=== PATIENT | male | born 1955 | race Caucasian/White ===

== ENCOUNTER → 2019-09-07 09:09 | Outpatient (BNVA) | payer OTHER, SELFPAY | PROVIDERS: Family Provider Family Medicine; PCP Family Medicine; Visit Provider Nurse Practitioner | DX: F43.12 Post-traumatic stress disorder, chronic (principal); G31.84 Mild cognitive impairment of uncertain or unknown etiology | CPT/HCPCS: 99214 ==

== ENCOUNTER → 2019-10-05 09:47 | Outpatient (BNVA) | payer OTHER, SELFPAY | PROVIDERS: Family Provider Family Medicine; PCP Family Medicine; Visit Provider Nurse Practitioner | DX: G31.84 Mild cognitive impairment of uncertain or unknown etiology (principal); F43.12 Post-traumatic stress disorder, chronic | CPT/HCPCS: 99213 ==

== ENCOUNTER 2019-12-24 06:58 | Day surgery (SDC) | payer MEDICARE, OTHER, SELFPAY ==
[2019-12-23 12:43] VITALS: BMI 25.1
[2019-12-24 07:09] VITALS: BP 116/83; PULSE 67; RESP 18; TEMP 36.3; O2SAT 99
[2019-12-24] MEDS: sodium chloride 0.9% 1,000 ML 30 ML IV (07:20)
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
[2019-12-24 09:08] VITALS: BP 111/72; PULSE 60; RESP 18; TEMP 36.1; O2SAT 96
--- NOTE | 2019-12-24 09:14 | ANE.PACU2 ---
 Inpatient post-anesthesia follow up: Airway intact: Yes Vital signs: Temperature 97.3 F Pulse Rate 67 Respiratory Rate 18 Blood Pressure 116/83 Pulse Oximetry 99 Oxygen Delivery Me thod Room Air Oxygen Flow Rate Fraction of Inspir ed Oxygen Hydration adequate: Yes Nausea and vomiting: No Pain level: 1 Mental status: Baseline
[2019-12-24 09:20] VITALS: BP 106/77; PULSE 61; RESP 18; O2SAT 98
== END 2019-12-24 09:38 | disposition home or self-care (01) ==
PROVIDERS: PCP Family Medicine; Visit Provider Internal Medicine
PROC: 0DJD8ZZ Inspection of Lower Intestinal Tract, Via Natural or Artificial Opening Endoscopic (ICD-10-PCS; CPT 45378; principal; 2019-12-24 08:30)
DX: Z12.11 Encounter for screening for malignant neoplasm of colon (principal); K63.89 Other specified diseases of intestine; I10 Essential (primary) hypertension
CPT/HCPCS: G0121; 12345; J2704; J7030

== ENCOUNTER → 2020-01-03 07:52 | Outpatient (BNVA) | payer MEDICARE, OTHER, SELFPAY | PROVIDERS: PCP Family Medicine; Visit Provider Nurse Practitioner | DX: F43.12 Post-traumatic stress disorder, chronic (principal); G31.84 Mild cognitive impairment of uncertain or unknown etiology | CPT/HCPCS: 99213 ==

== ENCOUNTER → 2020-02-03 11:31 | Outpatient (BNVA) | payer MEDICARE, OTHER, SELFPAY | PROVIDERS: PCP Family Medicine; Visit Provider Podiatrist Foot & Ankle Surgery | DX: M79.671 Pain in right foot (principal); M79.672 Pain in left foot | CPT/HCPCS: 73630 ==

== ENCOUNTER 2020-02-11 06:01 | Day surgery (SDC) | payer MEDICARE, OTHER, SELFPAY ==
[2020-02-10 10:03] VITALS: BMI 25.1
--- NOTE | 2020-02-11 | SCC_ITS ---
Procedure Done: Condylectomy left fourth toe CPT code 29469. Condylectomy right fourth toe CPT code 88493. Hammertoe correction left fifth toe CPT code 12573. Hammertoe correction right fifth toe CPT code 13765. 2 seconds of fluoroscopic guidance, for a cumulative dose of 0.037 mGy, was provided to Dr. Inman by the radiology department. C-arm images of the foot were saved for the patient's permanent record. GALILEA
[2020-02-11 06:18] VITALS: BP 112/68; PULSE 52; RESP 18; TEMP 36.4; O2SAT 98
--- NOTE | 2020-02-11 06:25 | W.PM.OPSUD ---
Surgery/Procedure H&P Update DATE OF PROCEDURE: February 11, 2020 DATE H&P PERFORMED: 02/03/20 H&P UPDATE INFORMATION: I have reviewed H&P completed within last 30 days, I have examined patient prior to procedure, No changes to prior documentation and H&P is in [facility] EMR on date indicated PREOP DIAGNOSIS: Right fifth hammertoe left and right foot. Heloma molle fourth toe left and right foot. PLANNED PROCEDURE: Operation Date: 02/11/20 07:00 Proposed Procedures p Condylectomy left and right foot fourth toe 19982 64545 M20.41 M20.42(Bilateral) - Ulysses Inman DPM s Hammertoe Correction left and right fifth toe(Bilateral) - Ulysses Inman DPM
[2020-02-11] MEDS: sodium chloride 0.9% 1,000 ML 30 ML IV (06:33)
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
--- NOTE | 2020-02-11 08:08 | P.OP_ITS ---
Operative Report Date of procedure: February 11, 2020 Pre-op Diagnosis: Right fifth hammertoe left and right foot. Heloma molle fourth toe left and right foot. Post-op diagnosis: same Post-op Findings: None Procedure Done: Condylectomy left fourth toe CPT code 07365. Condylectomy right fourth toe CPT code 58884. Hammertoe correction left fifth toe CPT code 88742. Hammertoe correction right fifth toe CPT code 11285. Implants: 4-0 Vicryl. 4-0 nylon. Specimens removed/disposition: None Pathology: none sent Surgeon: Ulysses Inman D.P.M. Forestry Support Specialist: Yolanda Anesthesia: MAC Estimated blood loss (mL): 2 Tourniquet time: See intraoperative documentation. IV fluids: None Urine output: None Complications: None Condition: stable Disposition: PACU Brief History: Patient is a pleasant 64-year-old male with a history of recalcitrant pain at left and right fourth toe and fifth toe with painful lesions at the fourth webspace. Conservative measures have failed to alleviate pain, he has utilized a variety of toe spacers, he has utilized salicylic acid pads, he has underwent cryotherapy and debridement, offloading with wide accommodative shoes. Patient states that he would like to discuss surgical options. States that conservative measures have not offered relief and is looking for long-term option. Recommended condylectomy the fourth toe left and right as well as hammertoe deformity of the fifth left and right risks include pain, bleeding, numbness, infection, damage to adjacent soft tissue structures, cock-up toe, flail toe, further progression of hammertoe, transfer lesions, failure to alleviate pain need for further surgical intervention. Patient is agreeable wishes to proceed. Procedure: Under mild sedation the patient was brought to the operating room and placed on the operating table in supine position. A timeout was performed. Anesthesia was then administered by the anesthesia service. Local anesthesia was injected by myself consisting of a total of 30 cc of 0.5% Marcaine plain and a left and right reverse Peralta block as well as a left and right foot fourth ray block. Well-padded pneumatic tourniquet was applied to the left and right ankle. The left and right lower extremities were then scrubbed, prepped and draped utilizing normal aseptic technique. The left and right foot was examined a weighted with an Esmarch bandage and a tourniquet was inflated at left and right ankle at 250 mmHg. Attention was directed to the fourth webspace of the left foot foot where a vertical incision was made from dorsal to plantar at the level of the proximal interphalangeal joint laterally at the fourth toe. Dissection was carried down through bone utilizing a combination of sharp and blunt technique. A osseous prominence consistent with a prominent lateral condyle at the head of the proximal phalanx of the fourth toe resected utilizing a bone rongeur and all rough edges smoothed with a hand rasp. Incision site was flushed with copious amounts of sterile saline solution. Incision was closed with 4-0 nylon. Attention was directed to the fourth webspace of the right foot foot where a vertical incision was made from dorsal to plantar at the level of the proximal interphalangeal joint laterally at the right fourth toe. Dissection was carried down through bone utilizing a combination of sharp and blunt technique. A osseous prominence consistent with a prominent lateral condyle at the head of the proximal phalanx of the fourth toe resected utilizing a bone rongeur and all rough edges smoothed with a hand rasp. Incision site was flushed with copious amounts of sterile saline solution. Incision was closed with 4-0 nylon. At this time attention was directed to the dorsum of the right fifth toe at the level of the metatarsal phalangeal joint where a linear longitudinal incision was made through skin with a #15 blade. Dissection was carried down bluntly to the level of the extensor tendon which was split longitudinally in a Z-plasty fashion for lengthening and reapproximated utilizing 4-0 Vicryl in the end. A medial capsulotomy was performed for soft tissue release at the medial aspect of the right fifth metatarsal phalangeal joint with improved correction of the transverse plane deformity. The incision site was flushed with copious amounts of sterile saline solution and skin closed with 4-0 nylon. Attention was directed to the dorsum of the left fifth toe at the level of the metatarsal phalangeal joint where a linear longitudinal incision was made through skin with a #15 blade. Dissection was carried down bluntly to the level of the extensor tendon which was split longitudinally in a Z-plasty fashion for lengthening and reapproximated utilizing 4-0 Vicryl in the end. A medial capsulotomy was performed for soft tissue release at the medial aspect of the left fifth metatarsal phalangeal joint with improved correction of the transverse plane deformity. The incision site was flushed with copious amounts of sterile saline solution and skin closed with 4-0 nylon. Incision sites were dressed with Adaptic, sterile 4 x 4's, Kerlix and Venkatesh wrap followed by postoperative shoe left and right foot. Prior to dressings being applied total of 10 cc of Exparel was injected subcutaneously at the incision sites both left and right foot fourth and fifth toes. At this time tourniquet was deflated and a prompt hyperemic response was noted to all distal digits of the left and right foot including the fourth and fifth toes. Patient tolerated the procedure well and was transferred to the PACU with vital signs stable and vascular status intact. Following a period of postoperative monitoring he will be discharged home is to have low low as of activity over the next 2 weeks his postoperative dressings clean, dry and intact until follow-up visit next week. Patient has pain medication prescribed by Dr. Cardona. Patient given my cell phone number and is to contact me with any postoperative questions or concerns.
--- NOTE | 2020-02-11 08:10 | XR_ITS ---
WS: [id number] LEFT FOOT: 3 VIEW(S) TECHNIQUE: AP, oblique and lateral. HISTORY: Postoperative state condylectomy fourth and fifth toe COMPARISON: 02/03/2020 No acute fracture or dislocation. Normal tarsal/metatarsal alignment. No soft tissue abnormality or bone destruction. XR/XR foot LT min 3V* [id number] IMPRESSION: Normal LEFT foot.
--- NOTE | 2020-02-11 08:10 | XR_ITS ---
WS: [id number] RIGHT FOOT: 3 VIEW(S) TECHNIQUE: AP, oblique and lateral. HISTORY: Postoperative state condylectomy fourth and fifth toe COMPARISON: 02/03/2020 No acute fracture or dislocation. Normal tarsal/metatarsal alignment. Postsurgical changes in the soft tissues seen best on the lateral projection. XR/XR foot RT min 3V* [id number] IMPRESSION: Postsurgical changes in the soft tissues of the midfoot.
[2020-02-11 08:15] VITALS: BP 97/57; PULSE 59; RESP 16; TEMP 36.2; O2SAT 98
[2020-02-11 08:35] VITALS: BP 121/63; PULSE 48; RESP 18; TEMP 36.2; O2SAT 99
== END 2020-02-11 09:02 | disposition home or self-care (01) ==
PROVIDERS: PCP Family Medicine; Visit Provider Podiatrist Foot & Ankle Surgery
PROC: (CPT 21050; principal; 2020-02-11 07:00)
PROC: (CPT 28285; 2020-02-11 07:00)
DX: M20.41 Other hammer toe(s) (acquired), right foot (principal); L84 Corns and callosities; G47.30 Sleep apnea, unspecified; K21.9 Gastro-esophageal reflux disease without esophagitis
CPT/HCPCS: 28285 ×2; 28288 ×2; 12345; 73630; 76000; C9290; J0690; J2001; J2250; J2704; J3010; J3490; J7030

== ENCOUNTER → 2020-03-23 10:06 | Outpatient (BNVA) | payer OTHER, MEDICARE, SELFPAY | PROVIDERS: PCP Family Medicine; Visit Provider Nurse Practitioner | DX: F43.12 Post-traumatic stress disorder, chronic (principal); G31.84 Mild cognitive impairment of uncertain or unknown etiology | CPT/HCPCS: 99213 ==

== ENCOUNTER 2020-04-27 09:19 | Emergency (ER) | payer MEDICARE, OTHER, SELFPAY ==
[2020-04-27 09:25] VITALS: BP 139/86; PULSE 67; RESP 16; TEMP 36.7; O2SAT 98; BMI 25.2
--- NOTE | 2020-04-27 09:30 | CT_ITS ---
WS: [id number] CT HEAD TECHNIQUE: Noncontrast CT of the head obtained from the skullbase to the vertex. CLINICAL INFORMATION: stroke like symptoms COMPARISON: None. DLP: 854.[address] scans at [facility] use at least one of these dose optimization techniques: automat ed exposure control; mA and/or kV adjustment per patient size (includes targeted exams where dose is matched to clinical indication); or iterative reconstruction. FINDINGS: Right posterior frontal intraparenchymal hematoma with surrounding edema. Intraparenchymal hematoma m easures 2.7 x 2.3 x 2.9 CM. Mild surrounding edema with mild localized mass effect. Mild mass effect on the right lateral ventricle. No midline shift. No hydrocephalus. No intraventricular hemorrhage. Normal manzano-white differentiation. Normal fourth ventricle and posterior fossa. Paranasal sinuses and mastoid air cells are well aerated. CT/CT head wo con* [id number] IMPRESSION: 1. Right posterior frontal intraparenchymal hematoma described above with mild surrounding edema. This should be followed up to resolution. 2. Mild mass effect on the right lateral ventricle. No hydrocephalus. No midli ne shift. 3. No other significant findings. Notified DENIA Casanova at 04/27/2020 12:35 PM.
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
[2020-04-27 11:30] VITALS: BP 126/77; RESP 18; O2SAT 96
[2020-04-27 13:01] LABS: Basophils # 0.1 10^3/uL (0.0-0.1); Eosinophils # 0.1 10^3/uL (0.0-0.8); Eosinophils % 2.2 %; Hematocrit 37.7 % (42.0-52.0); Hemoglobin 11.5 g/dL (11.7-16.6); Lymphocytes % 20.7 %; Mean Corpuscular HGB Conc 30.5 g/dL (30.0-36.0); Mean Corpuscular Hemoglobin 25.9 pg (28.0-34.0); Mean Corpuscular Volume 84.9 fL (80-94); Mean Platelet Volume 11.1 fL (7.4-10.4); Monocytes # 0.5 10^3/uL (0.2-0.9); Monocytes % 9.3 %; Neutrophils # 3.27 10^3/uL (1.8-7.7); Neutrophils % 66.6 %; Nucleated Red Blood Cells % 0 %; Platelet Count 306 10^3/cmm (130-400); Red Blood Count 4.44 10^6/uL (4.1-5.3); Red Cell Distribution Width 17.4 % (12.1-15.1); White Blood Count 4.9 10^3/uL (4.0-10.0)
[2020-04-27 13:36] LABS: INR 0.91 (0.8-1.2)
[2020-04-27 13:37] LABS: Partial Thromboplastin Time 31.6 SECONDS (23.9-36.7)
[2020-04-27 14:20] VITALS: BP 118/84; PULSE 52; RESP 16; O2SAT 95
[2020-04-27 14:46] LABS: Alanine Aminotransferase 14 U/L (0-41); Albumin Level 4.1 g/dL (3.5-5.2); Alkaline Phosphatase 75 IU/L (40-130); Anion Gap 14.2 (5-19); Aspartate Amino Transferase 23 U/L (0-40); Blood Urea Nitrogen 19 mg/dL (8-23); Carbon Dioxide 24 mmol/L (22-29); Chloride 105 mmol/L (98-107); Globulin 3.2 g/dL (1.3-4.6); Glomerular Filtration Rate 50.9 mL/min (90-130); Glucose 106 mg/dL (65-115); Osmolality Calculated 285 mOsm/kg (285-295); Potassium 4.2 mmol/L (3.5-5.1); Sodium 139 mmol/L (136-145); Total Bilirubin 0.2 mg/dL (0.15-1.2); Total Protein 7.3 g/dL (6.6-8.7)
[2020-04-27 15:15] VITALS: BP 123/71; PULSE 53; RESP 17; O2SAT 96
== END 2020-04-27 15:15 ==
LOC: ER 09:56
PROVIDERS: Emergency Provider Physician Assistant; PCP Family Medicine
DX: R29.810 Facial weakness (principal)
CPT/HCPCS: 12345; 36415; 70450; 80053; 85025; 85610; 85730; 87040; 99282; 99285

== ENCOUNTER → 2020-05-09 08:31 | Outpatient (BNVA) | payer MEDICARE, OTHER, SELFPAY | PROVIDERS: PCP Family Medicine; Referring Provider Dermatology; Visit Provider Dermatology | DX: L11.1 Transient acantholytic dermatosis [Grover] (principal); L57.0 Actinic keratosis; L82.1 Other seborrheic keratosis; L81.8 Other specified disorders of pigmentation | CPT/HCPCS: 17000; 17003; 99203 ==

== ENCOUNTER → 2020-05-12 12:44 | Outpatient (BNVA) | payer MEDICARE, OTHER, SELFPAY | PROVIDERS: PCP Family Medicine; Visit Provider Nurse Practitioner | DX: G31.84 Mild cognitive impairment of uncertain or unknown etiology (principal); F43.12 Post-traumatic stress disorder, chronic | CPT/HCPCS: 99213 ==

== ENCOUNTER → 2020-05-30 16:24 | Outpatient (BNVA) | payer MEDICARE, OTHER, SELFPAY | PROVIDERS: PCP Family Medicine; Visit Provider Orthopaedic Surgery | DX: M25.551 Pain in right hip (principal) | CPT/HCPCS: 73502 ==

== ENCOUNTER → 2020-06-21 07:29 | Outpatient (BNVA) | payer MEDICARE, OTHER, SELFPAY | PROVIDERS: PCP Family Medicine; Visit Provider Nurse Practitioner | DX: F43.12 Post-traumatic stress disorder, chronic (principal) | CPT/HCPCS: 99214 ==

== ENCOUNTER 2020-07-20 08:35 | Outpatient (CLI) | payer MEDICARE, OTHER, SELFPAY ==
--- NOTE | 2020-07-20 08:41 | MR_ITS ---
WS: [id number] MRI HEAD WITH CONTRAST TECHNIQUE: Sagittal T1, T2 axial, T2 axial FLAIR, axial susceptibility weighted imaging, axial diffus ion weighted images, and coronal T2 images were obtained. Pre and post-T1 axial and post T1 coronal i mages. ADC and FSPGR images. CLINICAL INFORMATION: SUBDURAL HEMATOMA COMPARISON: CT April 27, 2020, MRI December 23, 2011 FINDINGS: No evidence of restricted diffusion to suggest acute ischemia. Ventricular system and basal cisterns are patent. Previously described right posterior frontal intraparenchymal hematoma has nearly resolve d in the interim. Residual T2 signal abnormality in the right posterior frontal lobe with a small candie unt of residual subacute and chronic blood products. Small amount of residual T1 hyperintense subacut e hematoma measures 1.8 x 0.5 CM. No evidence of increasing edema or mass effect. No new hemorrhage. Normal posterior fossa. Normal vascular flow voids at the skull base. No extra-axial fluid collection s. No evidence of mass or mass effect. Paranasal sinuses and mastoid air cells are well aerated. Prox imal 7th and 8th cranial nerves appear normal. Mild symmetric atrophy involving the temporal lobes an d hippocampal formations. Normal optic chiasm and pituitary infundibulum. Prior postoperative changes in the cervical spine partially visualized. Small amount of expected enhancement in the hematoma bed . Normal dural venous sinuses. Normal optic chiasm and pituitary infundibulum. Normal cavernous sinus es and Meckel's cave. MR/MR head wo/w con [id number] IMPRESSION: 1. Previously described right posterior frontal intraparenchymal hematoma has improved and nearly resolved. Residual subacute blood products measure 1.8 x 0. 5 CM. 2. Small amount of hemosiderin and expected enhancement in the hematoma bed. N o new or recurrent hemorrhage. 3. No hydrocephalus or midline shift. 4. No restricted diffusion to suggest acute ischemia. 5. Mild symmetric atrophy involving the temporal lobes and hippocampal formati ons. 6. No other significant changes.
[2020-07-20 09:25] LABS: Blood Urea Nitrogen 15 mg/dL (8-23); Glomerular Filtration Rate 67.2 mL/min (90-130)
== END 2020-07-20 08:36 | disposition home or self-care (01) ==
LOC: RADSHAW 08:39
PROVIDERS: PCP Family Medicine; Visit Provider Family Medicine
DX: I62.00 Nontraumatic subdural hemorrhage, unspecified (principal); G31.9 Degenerative disease of nervous system, unspecified
CPT/HCPCS: 36415; 70553; 82565; 84520

== ENCOUNTER → 2020-07-25 09:04 | Outpatient (BNVA) | payer MEDICARE, OTHER, SELFPAY | PROVIDERS: PCP Family Medicine; Visit Provider Specialist | DX: I61.9 Nontraumatic intracerebral hemorrhage, unspecified (principal) | CPT/HCPCS: 99204 ==

== ENCOUNTER → 2020-09-12 07:46 | Outpatient (BNVA) | payer MEDICARE, OTHER, SELFPAY | PROVIDERS: PCP Family Medicine; Visit Provider Nurse Practitioner | DX: F43.12 Post-traumatic stress disorder, chronic (principal) | CPT/HCPCS: 99214 ==

== ENCOUNTER 2021-01-09 08:45 | Outpatient (CLI) | payer MEDICARE, OTHER, SELFPAY ==
--- NOTE | 2021-01-09 09:00 | CT_ITS ---
WS: [id number] CTA HEAD TECHNIQUE: Contrast enhanced CTA of the head with coronal and sagittal reformatted images and maximum intensity projection (MIP) images. NASCET criteria utilized. CLINICAL INFORMATION: I67.1 - Cerebral aneurysm, nonruptured COMPARISON: MRI July 20, 2020 DLP: 1506.[address] scans at [facility] use at least one of these dose optimization techniques: automat ed exposure control; mA and/or kV adjustment per patient size (includes targeted exams where dose is matched to clinical indication); or iterative reconstruction. FINDINGS: Previously described right posterior frontal intraparenchymal hematoma has resolved since t he prior examinations. No residual or new blood products. No evidence of underlying mass or vascular malformation. Small amount of encephalomalacia right posterior frontal lobe. Dominant distal left vertebral artery. Basilar artery is patent. Dominant anterior circulation. Small basilar artery. Persistent left SIZING END BANDER. Normal vascularity to the SIZING END BANDER territory bilaterally. Both ICAs are patent at the skull base. Normal vascularity to the LESLIE and MCA territories bilaterally . No evidence of high-grade proximal stenosis or aneurysm. CT/CT angio head [id number] IMPRESSION: 1. Previously described right posterior frontal intraparenchymal hematoma has resolved. Small amount of underlying encephalomalacia 2. No evidence of underlying mass or vascular malformation in the area of micheal or hematoma. 3. No evidence of intracranial flow-limiting stenosis. No aneurysm. 4. Dominant anterior circulation. Persistent left SIZING END BANDER.
[2021-01-09 09:11] LABS: Blood Urea Nitrogen 22 mg/dL (8-23); Glomerular Filtration Rate 50.7 mL/min (90-130)
[2021-01-09] MEDS: iodixanol 320 mg/mL 100mL Btl IV (09:37)
== END 2021-01-09 08:46 | disposition home or self-care (01) ==
PROVIDERS: PCP Family Medicine; Visit Provider Specialist
DX: I61.9 Nontraumatic intracerebral hemorrhage, unspecified (principal); I67.1 Cerebral aneurysm, nonruptured
CPT/HCPCS: 70496; 82565; 84520; 99213; Q9967

== ENCOUNTER → 2021-01-30 09:26 | Outpatient (BNVA) | payer MEDICARE, OTHER, SELFPAY | PROVIDERS: PCP Family Medicine; Visit Provider Nurse Practitioner | DX: F43.12 Post-traumatic stress disorder, chronic (principal); G31.84 Mild cognitive impairment of uncertain or unknown etiology | CPT/HCPCS: 99214 ==

== ENCOUNTER → 2021-07-24 08:46 | Outpatient (BNVA) | payer MEDICARE, OTHER, SELFPAY | PROVIDERS: PCP Family Medicine; Visit Provider Nurse Practitioner | DX: F43.12 Post-traumatic stress disorder, chronic (principal); G31.84 Mild cognitive impairment of uncertain or unknown etiology | CPT/HCPCS: 99214 ==

== ENCOUNTER → 2022-01-22 08:10 | Outpatient (BNVA) | payer MEDICARE, OTHER, SELFPAY | PROVIDERS: PCP Family Medicine; Visit Provider Nurse Practitioner | DX: F43.12 Post-traumatic stress disorder, chronic (principal); G31.84 Mild cognitive impairment of uncertain or unknown etiology; Z79.899 Other long term (current) drug therapy | CPT/HCPCS: 80061; 83036; 99214 ==

== ENCOUNTER → 2023-02-25 15:41 | Outpatient (BNVA) | payer MEDICARE, OTHER, SELFPAY | PROVIDERS: PCP Family Medicine; Visit Provider Dermatology | DX: L57.0 Actinic keratosis (principal); L82.1 Other seborrheic keratosis; L81.4 Other melanin hyperpigmentation | CPT/HCPCS: 17000; 99213 ==

== ENCOUNTER → 2023-05-28 12:58 | Outpatient (BNVA) | payer MEDICARE, OTHER, SELFPAY | PROVIDERS: PCP Family Medicine; Visit Provider Dermatology | DX: L57.0 Actinic keratosis (principal); L82.1 Other seborrheic keratosis; L81.4 Other melanin hyperpigmentation; L11.1 Transient acantholytic dermatosis [Grover] | CPT/HCPCS: 99213 ==

== ENCOUNTER → 2024-03-05 08:19 | Outpatient (BNVA) | payer MEDICARE, OTHER, SELFPAY | PROVIDERS: PCP Family Medicine; Visit Provider Nurse Practitioner Family | DX: L57.0 Actinic keratosis (principal); T24.231A Burn of second degree of right lower leg, initial encounter; X58.XXXA Exposure to other specified factors, initial encounter; L11.1 Transient acantholytic dermatosis [Grover]; L82.1 Other seborrheic keratosis; L81.4 Other melanin hyperpigmentation | CPT/HCPCS: 17000; 99214 ==

== ENCOUNTER → 2024-03-15 11:17 | Outpatient (BNVA) | payer MEDICARE, OTHER, SELFPAY | PROVIDERS: PCP Family Medicine; Visit Provider Nurse Practitioner Family | DX: T24.231A Burn of second degree of right lower leg, initial encounter (principal); X58.XXXA Exposure to other specified factors, initial encounter | CPT/HCPCS: 99213 ==

== ENCOUNTER → 2024-05-26 08:27 | Outpatient (BNVA) | payer MEDICARE, OTHER, SELFPAY | PROVIDERS: PCP Family Medicine; Visit Provider Family Medicine | DX: E78.5 Hyperlipidemia, unspecified (principal); R79.89 Other specified abnormal findings of blood chemistry | CPT/HCPCS: 80053; 80061 ==

== ENCOUNTER → 2024-06-01 09:57 | Outpatient (BNVA) | payer MEDICARE, OTHER, SELFPAY | PROVIDERS: PCP Family Medicine; Visit Provider Family Medicine | DX: E11.9 Type 2 diabetes mellitus without complications (principal) | CPT/HCPCS: 84443 ==

== ENCOUNTER 2024-07-28 08:25 | Outpatient (CLI) | payer MEDICARE, OTHER, SELFPAY ==
--- NOTE | 2024-07-28 08:29 | MR_ITS ---
WS: [id number] MRI LEFT SHOULDER NONCONTRAST TECHNIQUE: Sagittal T2, coronal T1, T2 and proton density imaging. Axial gradient PDE imaging. 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 Mild downsloping acromion. Impingement of th e distal supraspinatus. Distal supraspinatus insertional tear with tendon retraction measuring approx imately 7 mm. This is new from previous. Chronic thinning of the supraspinatus and infraspinatus. Ten dinopathy infraspinatus. Advanced degenerative changes of the glenohumeral articulation with hypertrophic spurring. Biceps lab ral anchor appears intact. Biceps tendon appears intact within the bicipital groove. Tendinopathy int ra-articular biceps tendon. Chronic tear of the posterior labrum with degenerative fraying of the gle noid labrum. Teres minor and subscapularis tendons appear intact. MR/MR shoulder LT wo con* [id number] IMPRESSION: 1. Full-thickness tear involving distal supraspinatus at the insertion with te ndon retraction measuring 7 mm. 2. Tendinopathy infraspinatus. Rotator cuff is otherwise intact. 3. Advanced degenerative narrowing of the glenohumeral articulation with hyper trophic spurring. 4. Biceps labral anchor appears intact. 5. Tendinopathy intra-articular biceps tendon.
== END 2024-07-28 08:26 | disposition home or self-care (01) ==
PROVIDERS: PCP Family Medicine; Visit Provider Anesthesiology Pain Medicine
DX: M75.122 Complete rotator cuff tear or rupture of left shoulder, not specified as traumatic (principal); M75.92 Shoulder lesion, unspecified, left shoulder; M19.012 Primary osteoarthritis, left shoulder; M75.22 Bicipital tendinitis, left shoulder
CPT/HCPCS: 73221

== ENCOUNTER 2024-09-02 12:53 | Outpatient (CLI) | payer MEDICARE, OTHER, SELFPAY ==
--- NOTE | 2024-09-02 13:00 | XRR_ITS ---
PROCEDURE INFORMATION: Exam: XR Left Foot Exam date and time: 09/02/2024 1:22 PM Age: 68 years old Clinical indication: Injury or trauma; Blunt trauma; Injury date: 09/01/24; Injury details: Kicked door frame yesterday, left foot and 2nd digit pain since; Additional info: Toe pain - attention to left 4th toe TECHNIQUE: Imaging protocol: Radiologic exam of the left foot. Views: 3 or more views. COMPARISON: CR XR foot LT min 3V* [id number] 02/11/2020 8:23 AM FINDINGS: Bones/joints: There is a minimally medially displaced fracture of the proximal diaphysis of the proximal phalanx of the 2nd toe. The foot is otherwise unremarkable. Soft tissues: Normal. XR/XR foot LT min 3V* [id number] IMPRESSION: Fracture of the proximal phalanx of the 2nd toe.
== END 2024-09-02 12:54 | disposition home or self-care (01) ==
LOC: RAD 12:53
PROVIDERS: PCP Family Medicine; Visit Provider Family Medicine
DX: S92.912A Unspecified fracture of left toe(s), initial encounter for closed fracture (principal); W22.09XA Striking against other stationary object, initial encounter
CPT/HCPCS: 73630

== ENCOUNTER → 2024-09-03 10:59 | Outpatient (BNVA) | payer MEDICARE, OTHER, SELFPAY | PROVIDERS: PCP Family Medicine; Visit Provider Podiatrist Foot & Ankle Surgery | DX: S92.502A Displaced unspecified fracture of left lesser toe(s), initial encounter for closed fracture (principal); W22.8XXA Striking against or struck by other objects, initial encounter | CPT/HCPCS: 28515; 73630; 99203 ==

== ENCOUNTER → 2024-09-29 09:16 | Outpatient (BNVA) | payer MEDICARE, OTHER, SELFPAY | PROVIDERS: PCP Family Medicine; Visit Provider Podiatrist Foot & Ankle Surgery | DX: S92.502D Displaced unspecified fracture of left lesser toe(s), subsequent encounter for fracture with routine healing (principal); X58.XXXD Exposure to other specified factors, subsequent encounter | CPT/HCPCS: 73630; 99213 ==

== ENCOUNTER → 2024-10-27 09:59 | Outpatient (BNVA) | payer MEDICARE, OTHER, SELFPAY | PROVIDERS: PCP Family Medicine; Visit Provider Podiatrist Foot & Ankle Surgery | DX: S92.502D Displaced unspecified fracture of left lesser toe(s), subsequent encounter for fracture with routine healing (principal); X58.XXXD Exposure to other specified factors, subsequent encounter | CPT/HCPCS: 73630; 99213 ==

== ENCOUNTER → 2025-03-14 14:38 | Outpatient (BNVA) | payer MEDICARE, OTHER, SELFPAY | PROVIDERS: PCP Family Medicine; Visit Provider Nurse Practitioner Family | DX: L81.4 Other melanin hyperpigmentation (principal); L82.1 Other seborrheic keratosis; S80.862A Insect bite (nonvenomous), left lower leg, initial encounter; X58.XXXA Exposure to other specified factors, initial encounter; L82.0 Inflamed seborrheic keratosis; L29.89 Other pruritus; R20.9 Unspecified disturbances of skin sensation; R20.8 Other disturbances of skin sensation; L53.8 Other specified erythematous conditions; L57.0 Actinic keratosis | CPT/HCPCS: 17000; 17110; 99213 ==